=== PATIENT | male | born 2000 | race Caucasian/White ===

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

== ENCOUNTER 2022-06-27 09:18 | Emergency (ER) | payer MEDICAID, SELFPAY ==
--- NOTE | 2022-06-27 09:21 | ED.URI ---
HPI - URI/Sore Throat General Chief Complaint: Upper Respiratory Infection Stated Complaint: Chest Congestion/Shortness of Breath Time Seen by Provider: 06/27/22 09:20 Source: patient Mode of arrival: ambulatory Limitations: no limitations History of Present Illness HPI Narrative: Franck is a 22-year-old male patient presenting to the clinic today with complaints of chest congestion, sinus could congestion, sinus pain, and shortness of breath for over 1 week . He reports he is bringing up some yellowish brown phlegm when coughing and blowing his nose. He has felt feverish. MD elicited complaint: cough and other ( chest congestion, shortness of breath) Related Data Home Medications Medication Instructions Recorded Confirmed buspirone 15 mg tablet 15 mg PO BID 01/09/20 06/27/22 clonazepam 0.5 mg tablet 0.5 mg PO BID 01/09/20 06/27/22 lamotrigine 100 mg tablet 100 mg PO BID 01/09/20 06/27/22 clonazepam 1 mg tablet See Rx Instructions .Route 11/05/20 06/27/22 .COMPLEX PRN Anxiety fluvoxamine 100 mg tablet 100 mg PO DAILY 11/05/20 06/27/22 fluvoxamine 50 mg tablet 50 mg PO DAILY 11/05/20 06/27/22 quetiapine 25 mg tablet 25 mg PO HS 11/05/20 06/27/22 methylphenidate HCl 10 mg tablet 10 mg PO TID 06/27/22 06/27/22 Allergies Allergy/AdvReac Type Severity Reaction Status Date / Time No Known Allergies Allergy Verified 01/09/20 18:47 Review of Systems Review of Systems: Pertinent positives per HPI. Patient denies any fever, chills, rash, headache, visual changes, dizziness, chest pain, palpitations, nausea, vomiting, diarrhea, constipation, abdominal pain, or any urinary issues. [facility] Past Medical History Medical History Bipolar 1 disorder Schizo affective schizophrenia Social History Social History Gender identity (if verbalized by the patient): Male Comments At the time of my signature, I reviewed and agree with the nursing past medical, surgical, social, and family history. There is no relevant family history pertinent to the patient complaint. Exam Narrative: General: Well-developed, well nourished, in no apparent distress Head: Normocephalic, atraumatic Eyes: Pupils equally round and reactive to light bilaterally, EOM intact, sclera and conjunctive clear, no discharge, lids normal Ears: TMs intact and clear, ear canals clear, no drainage, grossly hearing normal. Nose: Nares patent, green nasal discharge, severe inflammation, maxillary and frontal sinus tenderness. Mouth: Oral pharynx without lesions or masses, good dentition, MMM. oropharynx red, postnasal drip Neck: Supple, trachea midline, no enlargement of anterior or posterior cervical nodes, no thyroid masses or goiter palpable. Cardio: Regular rate and rhythm, s1 and s2 normal, no murmur appreciated. Resp: Diminished in the lower lung goodman otherwise clear, no rhonchi, rales, wheezing or rubs Course Course Emergency Course: Portions of this record may have been created with voice recognition software. Level of Care: Express Care Visit Vital Signs Vital signs: Vital Signs Temperature 36.8 C 06/27/22 09:23 Pulse Rate 122 H 06/27/22 09:23 Respiratory Rate 18 06/27/22 09:23 Blood Pressure 149/96 H 06/27/22 09:23 Pulse Oximetry 100 06/27/22 09:23 Oxygen Delivery Room Air 06/27/22 09:23 Temperature 36.8 C 06/27/22 09:23 Pulse Rate 122 H 06/27/22 09:23 Respiratory Rate 18 06/27/22 09:23 Blood Pressure 149/96 H 06/27/22 09:23 Pulse Oximetry 100 06/27/22 09:23 Oxygen Delivery Room Air 06/27/22 09:23 Vital signs reviewed MDM - URI/Sore Throat MDM Narrative Medical decision making narrative: At the time of visit patient is resting comfortably on the exam table. I suspect patient has acute rhinosinusitis and bronchitis. Prescription for Augmentin, prednisone, and albuterol in
[2022-06-27 09:23] VITALS: BP 149/96; PULSE 122; RESP 18; TEMP 36.8; O2SAT 100
== END 2022-06-27 09:35 | disposition home or self-care (01) ==
PROVIDERS: Emergency Provider Nurse Practitioner Family
DX: J01.90 Acute sinusitis, unspecified (principal); J40 Bronchitis, not specified as acute or chronic; F31.9 Bipolar disorder, unspecified; F25.9 Schizoaffective disorder, unspecified
CPT/HCPCS: 99213; G0463

== ENCOUNTER 2022-09-16 08:45 | Emergency (ER) | payer MEDICARE, MEDICAID, SELFPAY ==
[2022-09-16 08:50] VITALS: BP 155/105; PULSE 86; RESP 20; TEMP 37.2; O2SAT 99
--- NOTE | 2022-09-16 08:52 | ED.URI ---
HPI - URI/Sore Throat General Chief Complaint: Upper Respiratory Infection Stated Complaint: ears and throat fatigue Time Seen by Provider: 09/16/22 09:20 Source: patient and RN notes reviewed Mode of arrival: ambulatory Limitations: no limitations History of Present Illness HPI Narrative: 22-year-old male presents with concern for nasal congestion, rhinorrhea, cough, ear pain, sore throat that started 3-4 days ago. Reports exposure to strep throat. Reports he has not taken any medications for his symptoms. MD elicited complaint: sore throat and nasal congestion Related Data Home Medications Medication Instructions Recorded Confirmed clonazepam 0.5 mg tablet 0.5 mg PO BID 01/09/20 09/16/22 methylphenidate HCl 10 mg tablet 10 mg PO TID 06/27/22 09/16/22 Allergies Allergy/AdvReac Type Severity Reaction Status Date / Time buspirone [From BuSpar] Allergy Rash Verified 09/16/22 09:18 Review of Systems Review of Systems: CONSTITUTIONAL: Denies malaise, chills, sweats, or fever. EYES: Denies visual changes, redness, or discharge. ENT: Reports rhinorrhea, congestion, otalgia and sore throat. CARDIOVASCULAR: Denies chest pain, palpitations, or edema. RESPIRATORY: Reports cough. Denies dyspnea. GASTROINTESTINAL: Denies abdominal pain, nausea, vomiting, diarrhea SKIN: Denies rash or itching. MUSCULOSKELETAL: Denies myalgia. NEUROLOGIC: Denies headache. All systems reviewed & are unremarkable except as noted in HPI and below PMFSH Past Medical History Medical History Bipolar 1 disorder Schizo affective schizophrenia Social History Social History Gender identity (if verbalized by the patient): Male Comments At time of signature, agree with nursing past medical, surgical, social and family history. There is no relevant family history pertinent to the presenting complaint Exam Narrative: GENERAL: Well-appearing, well-nourished, and in no acute distress. HEAD: Normocephalic EYES: PERRLA, conjunctivae clear ENT: Nares clear, clear discharge. Mucous membranes moist. TM pearly hirsch with dull light reflex bilaterally; no tragal tenderness. Oropharynx erythematous without lesions. Tonsils not enlarged and without exudate, no drooling, no hoarseness, no trismus, uvula midline. NECK: Supple. No lymphadenopathy CHEST: Clear to auscultation, breath sounds equal. No wheezing, rhonchi, rales, or stridor. No respiratory distress, speaks in full sentences. HEART: Regular rate and rhythm. No murmur heard. SKIN: Warm, dry, no rash. NEURO: Alert and oriented x3. PSYCH: Normal mood and affect Course Course Emergency Course: Patient is aware of diagnosis, understands and agrees to treatment plan. Anticipatory guidance given. Patient agrees to follow-up as directed and is aware of reasons to seek care at the emergency department. Portions of this record may have been created with voice recognition software Level of Care: Express Care Visit Vital Signs Vital signs: Reviewed. MDM - URI/Sore Throat MDM Narrative Medical decision making narrative: Differential diagnosis considered: Cormier virus, strep pharyngitis, allergic rhinitis, upper respiratory tract infection, sinusitis, rhinosinusitis, nasopharyngitis. viral pharyngitis, otitis media, otitis externa, pneumonia, bronchitis, viral cough syndrome, viral syndrome, and influenza. Exam findings show no acute concerns or changes; patient is non-toxic appearing and is in no distress. Patient is appropriate for outpatient treatment and follow-up. Lab Data Attestation: I reviewed the patient's lab results. Critical Care Time Critical Care Time Critical Care Time: No Discharge Plan Discharge Clinical Impression: Upper respiratory infection Patient Disposition: Home, Self-Care Condition: Stable Instructions: Upper Respiratory Infection (ED) Additi
== END 2022-09-16 09:58 | disposition home or self-care (01) ==
PROVIDERS: Emergency Provider Nurse Practitioner
DX: J06.9 Acute upper respiratory infection, unspecified (principal)
CPT/HCPCS: 87081; 87880; 99213; G0463

== ENCOUNTER 2023-03-01 12:12 | Emergency (ER) | payer MEDICARE, MEDICAID, SELFPAY ==
[2023-03-01 12:20] VITALS: BP 136/81; PULSE 87; RESP 20; TEMP 36.8; O2SAT 100
--- NOTE | 2023-03-01 12:29 | ED.UPPEXIN ---
HPI - Extremity Injury (Upper) General Chief Complaint: Upper Respiratory Infection Stated Complaint: Sore Throat/Vomiting/Chills History of Present Illness HPI narrative: PATIENT PRESENTS WITH SORE THROAT NO TROUBLE SWALLOWING NO DROOLING SOME NAUSEA NO VOMITING NO RASH TOLERATING PO FLUIDS WELL NORMAL OUTPUT Related Data Home Medications Medication Instructions Recorded Confirmed clonazepam 0.5 mg tablet 0.5 mg PO BID 01/09/20 03/01/23 methylphenidate HCl 10 mg tablet 10 mg PO TID 06/27/22 03/01/23 Allergies Allergy/AdvReac Type Severity Reaction Status Date / Time buspirone [From BuSpar] Allergy Rash Verified 09/16/22 09:18 Review of Systems Review of Systems: CONSTITUTIONAL: DENIES CHILLS, OR SWEATS. REPORTS FEVER AND GENERALIZED BODY ACHES EYES: DENIES VISUAL CHANGES, REDNESS, OR DISCHARGE. ENT: DENIES OTALGIA. REPORTS NASAL CONGESTION RUNNY NOSE AND SORE THROAT CARDIOVASCULAR: DENIES CHEST PAIN, PALPITATIONS, OR EDEMA. RESPIRATORY: DENIES DYSPNEA. REPORTS OCCASIONAL COUGH GASTROINTESTINAL: DENIES ABDOMINAL PAIN, NAUSEA, VOMITING, OR DIARRHEA. GENITOURINARY: DENIES DYSURIA OR HEMATURIA. SKIN: DENIES RASH OR ITCHING. MUSCULOSKELETAL: DENIES BACK PAIN, JOINT PAIN, OR MYALGIA. REPORTS GENERALIZED BODY ACHES NEUROLOGIC: DENIES HEADACHE, NUMBNESS, OR WEAKNESS. PSYCHIATRIC: DENIES ANXIETY OR DEPRESSION. [facility] Past Medical History Medical History Bipolar 1 disorder Schizo affective schizophrenia Social History Social History Gender identity (if verbalized by the patient): Male Comments AT TIME OF SIGNATURE, AGREE WITH NURSING PAST MEDICAL, SURGICAL, SOCIAL AND FAMILY HISTORY. THERE IS NO RELEVANT FAMILY HISTORY PERTINENT TO THE PRESENTING COMPLAINT Exam Narrative: THE PATIENT IS A WELL-DEVELOPED, WELL-NOURISHED IN NO ACUTE DISTRESS. SKIN: SKIN IS WARM AND DRY WITHOUT ERYTHEMA, SWELLING OR EXUDATE. THERE IS GOOD TURGOR. NO TENTING. HEAD: ATRAUMATIC. NORMOCEPHALIC. NO TEMPORAL OR SCALP TENDERNESS. EYES: MOIST AND BRIGHT. SCLERA AND CONJUNCTIVAE NORMAL. NO DISCHARGE. PERRLA. EXTRAOCULAR MOTIONS INTACT. GROSS VISUAL ACUITY INTACT. EARS: PINNA IS NORMAL SHAPE AND CONTOUR. CLEAR EXTERNAL AUDITORY CANALS. TM PEARLY CASILLAS WITH GOOD CONE OF LIGHT, NO ERYTHEMA OR SUPPURATION. BILATERAL CERUMEN NOTED NO GROSS HEARING DEFICIT. NOSE: PINK, MOIST MUCOSA WITH GOOD AIR MOVEMENT. CLEAR RHINORRHEA WITHOUT NASAL FLARING. SEPTUM MIDLINE. MOUTH: MOIST MUCOUS MEMBRANES. THROAT; MILD ERYTHEMA NOTED TO POSTERIOR OROPHARYNX WITH MODERATE POSTNASAL DRAINAGE. WITHOUT EXUDATE OR ULCERATION.. UVULA MIDLINE. NORMAL MOVEMENT OF SOFT PALATE. NECK: SUPPLE AND NONTENDER WITH FULL RANGE OF MOTION WITHOUT DISCOMFORT. NO MENINGEAL SIGNS. LUNGS: EQUAL AND BILATERAL BREATH SOUNDS WITHOUT WHEEZES, RALES OR RHONCHI. CHEST: THE CHEST WALL IS WITHOUT RETRACTIONS OR USE OF ACCESSORY MUSCLES. HEART: HAS A REGULAR RATE AND RHYTHM WITHOUT MURMUR, GALLOPS, CLICK OR RUB. ABDOMEN: SOFT, NONTENDER WITH POSITIVE ACTIVE BOWEL SOUNDS. NO REBOUND TENDERNESS. EXTREMITIES: WITHOUT CYANOSIS, CLUBBING OR EDEMA. EQUAL 2+ DISTAL PULSES AND 2 SECOND CAPILLARY REFILL NOTED. NEUROLOGIC: ALERT, ACTIVE, . THE PATIENT MOVES ALL EXTREMITIES WITH NORMAL MUSCLE STRENGTH. NORMAL MUSCLE TONE IS NOTED. NORMAL COORDINATION IS NOTED. NO FOCAL NEUROLOGICAL FINDINGS NOTED. Course Course Level of Care: Express Care Visit Vital Signs Vital signs: Vital Signs Temperature 36.8 C 03/01/23 12:20 Pulse Rate 87 03/01/23 12:20 Respiratory Rate 03/01/23 12:20 Blood Pressure 136/81 03/01/23 12:20 Pulse Oximetry 100 03/01/23 12:20 Oxygen Delivery Room Air 03/01/23 12:20 Temperature 36.8 C 03/01/23 12:20 Pulse Rate 87 03/01/23 12:20 Respiratory Rate 03/01/23 12:20 Blood Pressure 136/81 03/01/23 12:20 Pulse Oximetr
== END 2023-03-01 12:55 | disposition home or self-care (01) ==
PROVIDERS: Emergency Provider Nurse Practitioner Family
DX: J02.9 Acute pharyngitis, unspecified (principal); F20.9 Schizophrenia, unspecified
CPT/HCPCS: 87880; 99213; G0463

== ENCOUNTER 2023-05-22 09:58 | Emergency (ER) | payer MEDICARE, MEDICAID, SELFPAY ==
[2023-05-22 10:05] VITALS: BP 147/85; PULSE 70; RESP 18; TEMP 36.7; O2SAT 100
[2023-05-22 10:14] VITALS: BP 147/85; PULSE 70; RESP 18; TEMP 36.7; O2SAT 100
--- NOTE | 2023-05-22 11:07 | ED.URI ---
HPI - URI/Sore Throat General Chief Complaint: Upper Respiratory Infection Stated Complaint: aches/chills/chest heavy/cough Time Seen by Provider: 05/22/23 11:08 Source: patient, RN notes reviewed and old records reviewed Mode of arrival: ambulatory Limitations: no limitations History of Present Illness HPI Narrative: 23 year old male presents to [facility] care with complaints of 2 day history of dry cough and some chest heaviness with cough, states little shortness of breath, some nasal congestion and drainage, body aches and chllls, unknown if any fevers. Patient denies any known wheezing. Patient reports that he needs work note since he had to call off today. Patient reports that he has history of past pneumonia and bronchitis. MD elicited complaint: cough and sore throat Pertinent past history: pneumonia and other (bronchitis) Onset (ago): day(s) (2 days) Pain scale (0-10): 5 Able to tolerate fluids by mouth: Yes Treatments prior to arrival: ibuprofen Related Data Home Medications Medication Instructions Recorded Confirmed clonazepam 0.5 mg tablet 0.5 mg PO BID 01/09/20 05/22/23 clonidine HCl 0.1 mg 0.1 mg PO DAILY 05/22/23 05/22/23 tablet,extended release,12 hr Allergies Allergy/AdvReac Type Severity Reaction Status Date / Time buspirone [From BuSpar] Allergy Rash Verified 05/22/23 10:01 Review of Systems Review of Systems: CONSTITUTIONAL: Reports malaise, chills, sweats, unknown if fever. EYES: Denies visual changes, redness, or discharge. ENT: Reports rhinorrhea, congestion, sinus pain, no otalgia and no sore throat. CARDIOVASCULAR: Denies chest pain, palpitations, or edema. RESPIRATORY: Reports cough.? states he is a little short of breath and has chest heaviness with cough GASTROINTESTINAL: Denies abdominal pain, nausea, vomiting, diarrhea SKIN: Denies rash or itching. MUSCULOSKELETAL:Reports myalgia. NEUROLOGIC: Denies headache. All systems reviewed & are unremarkable except as noted in HPI and below PMFSH Past Medical History Medical History (Updated 05/23/23 @ 09:32 by Lidia Lovett NP) Anxiety and depression Bipolar 1 disorder Bronchitis OCD (obsessive compulsive disorder) Pneumonia Schizo affective schizophrenia Surgical History Surgical History H/O eye surgery History of repair of pyloric stenosis Social History Social History Smoking status: Never smoker Alcohol intake: unknown Substance use: current Substance use type: marijuana Gender identity (if verbalized by the patient): Male Comments At time of signature, agree with nursing past medical, surgical, social and family history. There is no relevant family history pertinent to the presenting complaint Exam Narrative: GENERAL: Well-appearing, well-nourished, and in no acute distress. HEAD: Normocephalic EYES: PERRLA, conjunctivae clear ENT: Nares clear, turbinates edematous and erythematous, clear discharge. Mucous membranes moist. TM pearly hirsch with dull light reflex bilaterally; no tragal tenderness. Oropharynx erythematous without lesions. Tonsils not enlarged and without exudate, no drooling, no hoarseness, no trismus, uvula midline.post nasal drainage NECK: Supple. No lymphadenopathy CHEST: Clear to auscultation, breath sounds equal. No wheezing, rhonchi, rales, or stridor. No respiratory distress, speaks in full sentences.dry cough,SAO2 100% on room air, no tachypnea noted respirations even and nonlabored HEART: Regular rate and rhythm. No murmur heard. SKIN: Warm, dry, no rash. NEURO: Alert and oriented x3. PSYCH: Normal mood and affect Course Course Emergency Course: Patient is aware of diagnosis, understands and agrees to treatment plan.? Anticipatory guidance given.? Patient agrees to follow-up as directed and is aware of reasons to seek care at the emerg
== END 2023-05-22 11:55 | disposition home or self-care (01) ==
PROVIDERS: Emergency Provider Registered Nurse
DX: J06.9 Acute upper respiratory infection, unspecified (principal); Z20.822 Contact with and (suspected) exposure to COVID-19; F12.90 Cannabis use, unspecified, uncomplicated; F41.9 Anxiety disorder, unspecified
CPT/HCPCS: 87081; 87426; 87804; 87880; 99213; C9803; G0463

== ENCOUNTER 2023-06-25 11:48 | Emergency (ER) | payer MEDICARE, MEDICAID, SELFPAY ==
[2023-06-25 11:56] VITALS: BP 143/84; PULSE 81; RESP 16; TEMP 37.3; O2SAT 100
--- NOTE | 2023-06-25 11:58 | ED.NAVMDI ---
HPI - Nausea/Vomiting/Diarrhea General Chief complaint: Nausea/Vomiting/Diarrhea Stated complaint: nausea/diarrhea/chills Time Seen by Provider: 06/25/23 11:58 Source: patient Mode of arrival: ambulatory Limitations: no limitations History of Present Illness HPI Narrative: Patient is a 23-year-old male who presents with 3 days of nausea, vomiting and diarrhea. Reports abdominal cramping. Has not been able is keep anything down. Related Data Home Medications Medication Instructions Recorded Confirmed clonidine HCl 0.1 mg 0.1 mg PO DAILY 05/22/23 05/22/23 tablet,extended release,12 hr albuterol sulfate 90 mcg/actuation inhalation 06/25/23 aerosol inhaler dextroamphetamine-amphetamine ER PO 06/25/23 10 mg 24hr capsule,extend release Allergies Allergy/AdvReac Type Severity Reaction Status Date / Time buspirone [From BuSpar] Allergy Rash Verified 06/25/23 11:54 Review of Systems Review of Systems: All systems reviewed & are unremarkable except as noted in HPI and below Constitutional: Constitutional: Denies body ache(s), Denies chills, Denies fatigue, Denies fever(s), Denies headache(s), Denies malaise and Denies weakness Eyes: Eyes: Denies blurry vision, Denies irritation and Denies loss of vision ENT: Denies otalgia, Denies headache(s), Denies nasal discharge, Denies sinus pain and Denies sore throat Cardiovascular: Cardiovascular: Denies chest pain, Denies irregular heart rhythm and Denies dyspnea Respiratory: Respiratory: Denies dyspnea Gastrointestinal: Gastrointestinal: Reports abdominal pain, Denies melena, Denies hematochezia, Reports diarrhea, Reports nausea and Reports vomiting Musculoskeletal: Musculoskeletal: Denies back pain, Denies myalgias and Denies arthralgias Integumentary/Breasts: Skin/Breast: Denies pruritus and Denies rash Neurologic: Denies headache(s), Denies loss of vision and Denies weakness Psychiatric: Psychiatric: Reports no additional psychiatric complaints Endocrine: Endocrine: Denies fatigue PMFSH Past Medical History Medical History Anxiety and depression Bipolar 1 disorder Bronchitis OCD (obsessive compulsive disorder) Pneumonia Schizo affective schizophrenia Surgical History Surgical History H/O eye surgery History of repair of pyloric stenosis Social History Social History Smoking status: Never smoker Alcohol intake: unknown Substance use: current Substance use type: marijuana Gender identity (if verbalized by the patient): Male Comments At time of signature, agree with nursing past medical, surgical, social and family history. There is no relevant family history pertinent to the presenting complaint. Exam Const: General: cooperative, healthy appearing, comfortable, no acute distress and well nourished Nutritional Appearance: well nourished Orientation/consciousness: patient oriented x3 Limitations: no limitations HENMT: Head: normal to inspection, normocephalic and atraumatic Ears: hearing grossly normal bilaterally and external ears normal Face/Nose/Sinus: Normal external nose present, normal facial exam and face symmetric Face and sinus: normal facial exam and face symmetric Mouth: Yes lip normal Eyes: General: appearance normal, both eyes and all related structures Alignment and Position: alignment normal and position normal Periorbital: periorbital findings normal Eyelids: eyelids normal Pupils: Equal, round and reactive pupils present EOM: EOMs intact bilaterally Neck: Neck: normal visual inspection, full ROM and supple Chest: Chest palpation & inspection: normal inspection of the chest Resp: Effort & Inspection: normal respiratory effort and able to speak in complete sentences Auscultation: clear to auscultation bilaterally Cardio: Rate: regular rate Rh
[2023-06-25 12:07] VITALS: BP 143/84; PULSE 81; RESP 16; TEMP 37.3; O2SAT 100
== END 2023-06-25 12:22 | disposition home or self-care (01) ==
PROVIDERS: Emergency Provider Nurse Practitioner Family
DX: K52.9 Noninfective gastroenteritis and colitis, unspecified (principal); Z79.899 Other long term (current) drug therapy
CPT/HCPCS: 99213; G0463

== ENCOUNTER 2023-08-04 09:07 | Emergency (ER) | payer MEDICARE, MEDICAID, SELFPAY ==
[2023-08-04 09:14] VITALS: BP 124/74; PULSE 84; RESP 20; TEMP 37.4; O2SAT 100
--- NOTE | 2023-08-04 09:48 | ED.URI ---
HPI - URI/Sore Throat General Chief Complaint: Upper Respiratory Infection Stated Complaint: aches/fever/ears/headache Time Seen by Provider: 08/04/23 09:35 Source: patient, RN notes reviewed and old records reviewed Mode of arrival: ambulatory Limitations: no limitations History of Present Illness HPI Narrative: 23-year-old male who presents to [facility] Care with complaints 2 day history of body aches, fevers, chills, headache, and ear pain, with episodes of diarrhea. Patient states the last time he had diarrhea was at 6:00 a.m. Patient has taken Tylenol and ibuprofen for his symptoms.Patient reports no shortness of breath, no tachypnea or any retractions. MD elicited complaint: cough and other (body aches,chills, fever headache and ear pain) Onset (ago): day(s) (2) Pain scale (0-10): 7 Able to tolerate fluids by mouth: Yes Treatments prior to arrival: acetaminophen and ibuprofen Related Data Home Medications Medication Instructions Recorded Confirmed clonidine HCl 0.1 mg 0.1 mg PO DAILY 05/22/23 08/04/23 tablet,extended release,12 hr albuterol sulfate 90 mcg/actuation 2 puff inhalation Q4-6H PRN 06/25/23 08/04/23 aerosol inhaler Shortness Of Breath Or Wheezing dextroamphetamine-amphetamine ER 10 mg PO DAILY 06/25/23 08/04/23 10 mg 24hr capsule,extend release Allergies Allergy/AdvReac Type Severity Reaction Status Date / Time buspirone [From BuSpar] Allergy Rash Verified 08/04/23 09:39 Review of Systems Review of Systems: CONSTITUTIONAL: Reports malaise, chills, sweats, or fever. EYES: Denies visual changes, redness, or discharge. ENT: Reports rhinorrhea, congestion,no sinus pain, bilateral otalgia and no sore throat. CARDIOVASCULAR: Denies chest pain, palpitations, or edema. RESPIRATORY: Reports cough.? Denies dyspnea. GASTROINTESTINAL: Denies abdominal pain, nausea, vomiting, positive for diarrhea SKIN: Denies rash or itching. MUSCULOSKELETAL: Reports myalgia. NEUROLOGIC: Reports headache. All systems reviewed & are unremarkable except as noted in HPI and below PMFSH Past Medical History Medical History Anxiety and depression Bipolar 1 disorder Bronchitis OCD (obsessive compulsive disorder) Pneumonia Schizo affective schizophrenia Surgical History Surgical History H/O eye surgery History of repair of pyloric stenosis Social History Social History Smoking status: Never smoker Alcohol intake: unknown Substance use: current Substance use type: marijuana Gender identity (if verbalized by the patient): Male Comments At time of signature, agree with nursing past medical, surgical, social and family history. There is no relevant family history pertinent to the presenting complaint Exam Narrative: GENERAL: Well-appearing, well-nourished, and in no acute distress. HEAD: Normocephalic EYES: PERRLA, conjunctivae clear ENT: Nares clear, turbinates edematous and erythematous, clear discharge. Mucous membranes moist. Right TM red, Left TM pearly hirsch with dull light reflex; no tragal tenderness. Oropharynx erythematous without lesions. Tonsils not enlarged and without exudate, no drooling, no hoarseness, no trismus, uvula midline.post nasal discharge NECK: Supple. No lymphadenopathy CHEST: Clear to auscultation, breath sounds equal. No wheezing, rhonchi, rales, or stridor. No respiratory distress, speaks in full sentences.SAO2 100% on room air HEART: Regular rate and rhythm. No murmur heard. SKIN: Warm, dry, no rash. NEURO: Alert and oriented x3. PSYCH: Normal mood and affect Course Course Emergency Course: Patient is aware of diagnosis, understands and agrees to treatment plan.? Anticipatory guidance given.? Patient agrees to follow-up as directed and is aware of reasons to seek care at
== END 2023-08-04 10:10 | disposition home or self-care (01) ==
PROVIDERS: Emergency Provider Registered Nurse
DX: B34.9 Viral infection, unspecified (principal); H65.01 Acute serous otitis media, right ear; Z79.899 Other long term (current) drug therapy; Z20.822 Contact with and (suspected) exposure to COVID-19
CPT/HCPCS: 87426; 87804; 99213; G0463

== ENCOUNTER 2024-03-23 15:27 | Emergency (ER) | payer MEDICARE, MEDICAID, SELFPAY ==
[2024-03-23 15:35] VITALS: BP 123/68; PULSE 85; RESP 18; TEMP 37.2; O2SAT 100
--- NOTE | 2024-03-23 15:44 | ED.URI ---
HPI - URI/Sore Throat General Chief Complaint: Upper Respiratory Infection Stated Complaint: chills/fatigue/cough/ears Source: patient and RN notes reviewed Mode of arrival: ambulatory Limitations: no limitations History of Present Illness HPI Narrative: 23-year-old male presented for complaint of nausea vomiting and diarrhea. Onset 3 days. Reports temp up to 101 yesterday. Endorses symptoms are improving but continues to endorse fatigue, body aches, and decreased p.o. intake. States he had 1 episode of vomiting since onset, and stools are now more formed. Denies abdominal pain, nausea, hematochezia, melena, cough or shortness of breath. Taking Pepto-Bismol. Reports exposure to COVID. MD elicited complaint: cough Related Data Home Medications Medication Instructions Recorded Confirmed clonidine HCl 0.1 mg 0.1 mg PO DAILY 05/22/23 03/23/24 tablet,extended release,12 hr dextroamphetamine-amphetamine 5 mg 5 mg PO QHS 03/23/24 03/23/24 tablet dextroamphetamine-amphetamine ER 15 mg PO QAM 03/23/24 03/23/24 15 mg 24hr capsule,extend release Allergies Allergy/AdvReac Type Severity Reaction Status Date / Time buspirone [From BuSpar] Allergy Rash Verified 08/04/23 09:39 Review of Systems Review of Systems: CONSTITUTIONAL: Endorses malaise, chills, sweats, fever EYES: Denies visual changes, redness, or discharge ENT: Reports rhinorrhea, congestion, sinus pain, otalgia, sore throat CARDIOVASCULAR: Denies chest pain, palpitations, edema RESPIRATORY: Reports cough, post nasal drainage. Denies dyspnea GASTROINTESTINAL: Denies abdominal pain, nausea, vomiting, Reports diarrhea SKIN: Denies rash or itching MUSCULOSKELETAL: Endorses myalgia NEUROLOGIC: Denies headache PMFSH Past Medical History Medical History Anxiety and depression Bipolar 1 disorder Bronchitis OCD (obsessive compulsive disorder) Pneumonia Schizo affective schizophrenia Surgical History Surgical History H/O eye surgery History of repair of pyloric stenosis Social History Social History Smoking status: Never smoker Alcohol intake: unknown Substance use: current Substance use type: marijuana Gender identity (if verbalized by the patient): Male Exam Narrative: GENERAL: well-appearing, nontoxic EYES: PERRLA, conjunctivae clear ENT: Mucous membranes moist. TM pearly hirsch with dull light reflex bilaterally; no tragal tenderness. Oropharynx not erythematous without lesions or exudate, no drooling, no hoarseness, no trismus, uvula midline. No tripod positioning, muffled voice, soft palate or pharyngeal wall bulging NECK: Supple. No lymphadenopathy CHEST: Clear to auscultation, breath sounds equal. No wheezing, rhonchi, rales, or stridor. No respiratory distress, speaks in full sentences. HEART: Regular rate and rhythm. No murmur heard. ABD: soft, flat, mildly tender bilateral lower quadrants SKIN: Warm, dry, no rash. NEURO: Alert and oriented x3. PSYCH: Normal mood and affect Course Course Emergency Course: Patient is aware of diagnosis, understands and agrees to treatment plan. Anticipatory guidance given. Patient agrees to follow-up as directed and is aware of reasons to seek care at the emergency department. Portions of this record may have been created with voice recognition software Level of Care: Express Care Visit Vital Signs Vital signs: Vital Signs Temperature 99 F 03/23/24 15:35 Pulse Rate 85 03/23/24 15:35 Respiratory Rate 18 03/23/24 15:35 Blood Pressure 123/68 03/23/24 15:35 Pulse Oximetry 100 03/23/24 15:35 Oxygen Delivery Room Air 03/23/24 15:35 Temperature 99 F 03/23/24 15:35 Pulse Rate 85 03/23/24 15:35 Respiratory Rate 18 03/23/24 15:35 Blood Pressure 123/68 03/23/24 15:35 Pulse Oxi
[2024-03-23 15:55] LABS: EDCOVIDSCREEN Negative (Negative); EDINFLUASCREEN Negative (Negative); EDINFLUBSCREEN Negative (Negative)
== END 2024-03-23 16:00 | disposition home or self-care (01) ==
PROVIDERS: Emergency Provider Nurse Practitioner Family
DX: B34.9 Viral infection, unspecified (principal); Z20.822 Contact with and (suspected) exposure to COVID-19
CPT/HCPCS: 87426; 87804; 99213; G0463

== ENCOUNTER 2024-07-13 17:51 | Emergency (ER) | payer MEDICARE, MEDICAID, SELFPAY ==
[2024-07-13 17:59] VITALS: BP 119/56; PULSE 92; RESP 16; TEMP 37.3; O2SAT 100
[2024-07-13 18:14] LABS: EDSTREPNEGPOS1 Negative (Negative)
--- NOTE | 2024-07-13 18:19 | ED.URI ---
HPI - URI/Sore Throat General Chief Complaint: Upper Respiratory Infection Stated Complaint: Sore Throat/Body Aches/Headahce Time Seen by Provider: 07/13/24 18:10 Source: patient Mode of arrival: ambulatory Limitations: no limitations History of Present Illness HPI Narrative: 24 yo M presents with c/o sore throat, nasal congestion, mild cough, fatigue and bodyaches for 5 days. Sore throat pretty severe wanted to get checked for strep. Afebrile. States probably just got a virus . No CP or SOB. All systems reviewed and negative except as noted above. Related Data Home Medications ?Medication ?Instructions ?Recorded ?Confirmed ?Last Taken ?Type clonidine HCl 0.1 mg 0.1 mg PO DAILY 05/22/23 03/23/24 Unknown History tablet,extended release,12 hr dextroamphetamine-amphetamine 5 mg 5 mg PO QHS 03/23/24 03/23/24 Unknown History tablet dextroamphetamine-amphetamine ER 15 mg PO QAM 03/23/24 03/23/24 Unknown History 15 mg 24hr capsule,extend release Allergies Allergy/AdvReac Type Severity Reaction Status Date / Time buspirone (From BuSpar) Allergy Rash Verified 07/13/24 18:06 Review of Systems Review of Systems: CONSTITUTIONAL: Denies fever, chills, or sweats. reports fatigue. EYES: Denies visual changes, redness, or discharge. ENT: Reports rhinorrhea, congestion, sore throat. Denies otalgia. CARDIOVASCULAR: Denies chest pain, palpitations, or edema. RESPIRATORY: reports cough. Denies dyspnea. GASTROINTESTINAL: Denies abdominal pain, nausea, vomiting, or diarrhea. GENITOURINARY: Denies dysuria or hematuria. SKIN: Denies rash or itching. MUSCULOSKELETAL: Denies back pain, joint pain, or myalgia. NEUROLOGIC: Denies headache, numbness, or weakness. PSYCHIATRIC: Denies anxiety or depression. All other systems reviewed are negative, except as documented in HPI. [facility] Past Medical History Medical History Anxiety and depression Bipolar 1 disorder Bronchitis OCD (obsessive compulsive disorder) Pneumonia Schizo affective schizophrenia Surgical History Surgical History H/O eye surgery History of repair of pyloric stenosis Social History Social History Smoking status: Never smoker Alcohol intake: unknown Substance use: current Substance use type: marijuana Gender identity (if verbalized by the patient): Male Comments At time of signature, agree with nursing past medical, surgical, social and family history. There is no relevant family history pertinent to the presenting complaint. Exam Narrative: GENERAL: This is a well-nourished, well-developed patient, in no apparent distress. HEAD: normocephalic, atraumatic. EYES: PERRL. Sclera clear/white. Vision is grossly intact. EARS: External ears normal, auditory canals clear and without drainage, TMs normal without perforation. Hearing grossly intact. NOSE: External nose normal with Mild congestion, clear nasal drainage THROAT: Mucous membranes moist, mild erythema with postnasal drainage. No swelling or exudates. NECK: Neck supple, non-tender without lymphadenopathy, masses or thyromegaly. CARDIOVASCULAR: Regular rate and rhythm without murmurs, gallops, or rubs. RESPIRATORY: Clear to auscultation. Breath sounds equal bilaterally. No wheezes, rales, or rhonchi. SKIN: warm, Dry, intact with no suspicious lesions or rash, good texture and turgor. NEURO: awake, alert, and oriented to person, place and time. There were no obvious focal neurologic abnormalities. EXTREMITIES: No joint tenderness, effusion, or edema noted. Course Course Level of Care: Express Care Visit Vital Signs Vital signs: Vital Signs Temperature 37.3 C 07/13/24 17:59 Pulse Rate 92 07/13/24 17:59 Respiratory Rate 16 07/13/24 17:59 Blood Pressure 119/56 L 07/13/24 17:59 Pulse Oximetry 100 07/13/24 17:59 Oxygen Delivery Room Air 07/13/24 17:59 Temperature 37.3 C 07/13/24 17:59 Pulse Rate 92 07/13/24 17:59 Respiratory Rate 16 07/13/24 17:59 Blood Pressure 119/56 L 07/13/24 17:59 Pulse Oximetry 100 07/13/24 17:59 Oxygen Delivery Room Air 07/13/24 17:59 Reviewed MDM - URI/Sore Throat MDM Narrative Medical decision making narrative: negative strep, influenza and COVID test. Strep culture ordered. Recommend patient take [id number] medications to treat viral symptoms. Patient is aware of diagnosis, understands and agrees to treatment plan. Anticipatory guidance given. Patient agrees to follow-up as directed and is aware of reasons to seek care at the emergency department. Portions of this record may have been created with voice recognition software Differential Diagnosis Differential diagnosis: Likely upper respiratory infection, sinusitis, viral infection, influenza and pharyngitis Lab Data Labs: Lab Results 07/13/24 Range/Units 18:13 POC Grp A Strep Screen Negative (Negative) Discharge Plan Discharge Clinical Impression: Viral upper respiratory tract infection with cough Patient Disposition: Home, Self-Care Condition: Stable Instructions: Upper Respiratory Infection (ED) Additional Instructions: your COVID, influenza and strep test were negative today. A strep culture was ordered and results will take 24-48 hours. If your strep culture is positive we will call you at that time and prescribed an antibiotic. Your symptoms are viral and may last 10-14 days. Taking [id number] medication to treat her symptoms such as DayQuil NyQuil cold and flu. Drink at least 64 oz of water a day. Follow-up With your primary care physician if symptoms are not improving. Patient Language: Georgian Prescriptions: No Action clonidine HCl 0.1 mg tablet extended release 12 hr 0.1 mg PO DAILY dextroamphetamine-amphetamine 5 mg tablet 5 mg PO QHS dextroamphetamine-amphetamine 15 mg capsule,extended release 24hr 15 mg PO QAM Follow-up/Referrals: PHYSICIAN NOT ON STAFF,NONSTAFF [Primary Care Provider] - Time of Disposition: 18:23
[2024-07-13 18:30] LABS: EDCOVIDSCREEN Negative (Negative); EDINFLUASCREEN Negative (Negative); EDINFLUBSCREEN Negative (Negative)
== END 2024-07-13 18:31 | disposition home or self-care (01) ==
PROVIDERS: Emergency Provider Nurse Practitioner Family
DX: J06.9 Acute upper respiratory infection, unspecified (principal); R05.9 Cough, unspecified; Z20.822 Contact with and (suspected) exposure to COVID-19; F12.90 Cannabis use, unspecified, uncomplicated
CPT/HCPCS: 87081; 87426; 87804; 87880; 99213; G0463

== ENCOUNTER 2025-03-31 18:32 | Emergency (ER) | payer OTHER, MEDICARE, MEDICAID, SELFPAY ==
--- NOTE | ~2025-03-31 | XR_ITS ---
Examination: XR forearm LT 2V Clinical History: wire stabbed him in the right proximal ULNAR ASPECT Comparison: None Technique: 2 views left forearm Findings/impression: 1. No radiopaque foreign body. 2. No fracture or other acute abnormality. Reviewed, dictated and finalized at location R.
--- OUTSIDE RECORDS SUMMARY | 2025-03-31 18:35 | XMS_ITS | Encounter Summary ---
Author Organization [facility] Address [address] [place] [address] Care Team Providers Care Lab Rn Name Role Phone Unavailable Primary Care Provider Unavailabl e Encounter Details Date Type Department Care Team (Late st Contact Info) Description 05/15/2022 Telephone [facility] [place] [address] Tim Forte I, OD [address] [facility] [place] [address] Social History Tobacco Use Types Packs/Day Years Used Date Smoking Tobacco: Some Days Smokeless Tobacco: Never Alcohol Use Standard Drinks/Week Comments Never 0 (1 standard drink = 0.6 oz pur e alcohol) AUDIT-C Answer Date Recorded Frequency of Alcohol Consumption Never 06/30/2019 Average Number of Drinks Not on file 020 Frequency of Binge Drinking Not on file 07/2019 Sex and Gender Information Value Date Recorded Sex Assigned at Not on file 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 Patient would like to know if it can be emailed to his email on file. 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
--- OUTSIDE RECORDS SUMMARY | 2025-03-31 18:35 | XMS_ITS | Clinical Summary ---
Author Organization [facility] Address [address] [facility] [address] [place] [address] Phone Care Team Providers Care Private Tutors [employer] Teachers Name Role Phone Narendra Desouza MD Primary Care Provider Allergies Active Allergy Reactions Criticality Noted Date Comments Buspirone Rash 11/10/2020 Medications clonazePAM (KlonoPIN) 1 MG Tablet Take 1 Tablet by mouth 3 times daily as needed for Anxiety. 30 Tablet 1 Active clonazePAM (KlonoPIN) 1 MG Tablet Take 1 Tablet by mouth 3 times daily as needed for Anxiety. 20 Tablet 1 Active QUEtiapine (SEROquel) 100 MG TabletIndicatio ns:100mg in am, 200mg in pm Take by mouth 2 times daily. Indications: 100mg in am, 200mg in pm Active prazosin (MINIPRESS) 1 MG Capsule Take 1 mg by mouth 2 times daily. Active albuterol 108 (90 Base) MCG/ACT Aerosol Solution take 2 Puffs by inhalation every 6 hours as needed for Wheezing. 8 g 2 Active Encounters Date Type Department Care Team Description 03/05/2025 7:31 PM CDT - 03/06/2025 3:45 AM CDT Emergency [facility] Emergency [address] [place] [address] Song Arboleda MD Abdominal wall hematoma, initial encounter Discharge Disposition: Discharged to home or Selfcare 03/05/2025 Travel 01/09/2025 11:00 AM CDT - 01/09/2025 12:17 PM CDT Emergency [facility] Emergency [address] [facility] [place] [address] Mehran Ascencio, PAC Non-cardiac chest pain Discharge Disposition: Discharged to home or Selfcare 01/09/2025 Travel from Last 3 Months Social History Tobacco Use Types Packs/Day Years Used Date Smoking Tobacco: Never Smokeless Tobacco: Never Alcohol Use Standard Drinks/Week Comments Never 0 (1 standard drink = 0.6 oz pur e alcohol) AUDIT-C Answer Date Recorded Frequency of Alcohol Consumption Never 08/04/2019 Average Number of Drinks Not on file 020 Frequency of Binge Drinking Not on file 11/2019 Sex and Gender Information Value Date Recorded Sex Assigned at Not on file Legal Sex Male 10:30 PM CDT Gender Identity Not on file Sexual Orientation Not on file Last Filed Vital Signs Vital Sign Reading Time Taken Comments Blood Pressure 93/56 03/06/2025 3:43 AM CDT Pulse 77 03/06/2025 3:43 AM CDT Temperature 37.1 C (98.7 F) 03/05/2025 7:36 PM CDT Respiratory Rate 18 03/06/2025 3:43 AM CDT Oxygen Saturation 100% 03/06/2025 3:43 AM CDT Inhaled Oxygen Concentration - - Weight 75.6 kg (166 lb 10.7 oz) 03/05/2025 7:36 PM CDT Height 170.2 cm (5' 7) 03/05/2025 7:36 PM CDT Body Mass Index 26.1 03/05/2025 7:36 PM CDT Plan of Treatment Health Maintenance Due Date Last Done Comments Hepatitis C Virus (HCV) Screening 2001 Human Papillomavirus (HPV) Immunization (2 - Male 2-dose series) 01/17/2016 07/19/2015 Meningococcal B Immunization (1 of 2 - Standard) 2017 Medicare Initial AWV [id number] 06/29/2023 Influenza Immunization (#1) 02/27/202505/29, 09/02/2011, 06/07/2010, Additional history exists SARS-COV-2 Immunization (25 season) 2025 Respiratory Syncytial Virus (RSV) Immunization (Adult) (1 - 1-dose 75+ series) 2076 Pneumococcal Immunization Combined Aged Out 2001, 2001 No longer eligibl e based on patient's age to complete this topic Hepatitis B Immunization Completed 002, 2001, 2001 DTaP/Tdap/Td Immunization Discontinued 2011, 03/10/2006, 10/13/2002, Additional history exists TdaP Immunization Completed 09/02/2011 Meningococcal Immunization (ACWY) Aged Out 06/10/2012 No longer eligible based on patient's age to complete this topic Rotavirus Immunization Aged Out No lo nger eligible based on patient's age to complete this topic Procedures Procedure Name Priority Date/Time Associated Diagnosis Comments CT ABDOMEN PELVIS W/ CONTRAST Stat with Interpretation 03/05/2025 11:15 PM CDT CBC WITH AUTO DIFFERENTIAL STAT 03/05/2025 9:06 PM CDT URINALYSIS REFLEX IF INDICATED BY ABNORMAL RESULTS STAT 03/05/2025 9:06 PM CDT APTT (PTT) STAT 03/05/2025 9:06 PM CDT PROTIME (PT) (PROTHROMBIN TIME) STAT 03/05/2025 9:06 PM CDT LIPASE STAT 03/05/2025 9:06 PM CDT MAGNESIUM (MG) STAT 03/05/2025 9:06 PM CDT CMP (COMPREHENSIVE METABOLIC PANEL) STAT 03/05/2025 9:06 PM CDT COMPLETE BLOOD COUNT (CBC) WITH DIFF STAT 03/05/2025 9:[address] - ABDOMEN/PELVIS 03/05/2025 12:00 AM CDT XR CHEST 2 VIEWS STAT 01/09/2025 11:36 AM CDT CBC WITH AUTO DIFFERENTIAL STAT 01/09/2025 11:13 AM CDT TROPONIN I, HIGH SENSITIVITY (HSTRP) STAT 01/09/2025 11:13 AM CDT CMP (COMPREHENSIVE METABOLIC PANEL) STAT 01/09/2025 11:13 AM CDT COMPLETE BLOOD COUNT (CBC) WITH DIFF STAT 01/09/2025 11:13 AM CDT EKG 12 LEAD STAT 01/09/2025 11:01 AM CDT EKG SCAN 01/09/2025 12:00 AM CDT from Last 3 Months Results * CT ABDOMEN PELVIS W/ CONTRAST (03/05/2025 11:15 PM CDT) Anatomical Region Laterality Modality Abdomen N/A Computed Tomogra phy 03/05/2025 11:1 5 PM CDT Impressions 03/06/2025 6:11 AM CDT IMPRESSION: No acute finding. No evidence for herniation. Normal appendix. No bowel obstruction. Mild constipation. Narrative 03/06/2025 6:[address] ABDOMEN PELVIS W/ CONTRAST : 03/05/2025 11:15 PM DICTATING PHYSICIAN: RODRIGUEZ GARCIA, [facility]. HISTORY: As below. ADDITIONAL TECHNOLOGIST HISTORY: RLQ abdominal pain (Age >= 14y), pt c/o lump in upper abd with pain after lifting heavy bags of concrete 3 days ago. TECHNIQUE: Multiple helical axial images were obtained through the abdomen and pelvis with contrast. Multiplanar reformats were performed. Image acquisition performed utilizing automated exposure control (AEC) and iterative reconstruction software in order to lower patient dose. IV CONTRAST TYPE AND VOLUME: Administered contrast documentation is located within the patient's electronic health record. RADIATION DOSE: DLP [id number] COMPARISON: 09/23/2021. FINDINGS: Lung bases: Clear. ABDOMEN: Liver: No focal lesion or intrahepatic bile duct dilatation. Portal venous system is patent. Gallbladder: No evidence for wall thickening or inflammation. Spleen: Within normal limits. No evidence for splenomegaly or focal lesion. Pancreas: No focal lesion or pancreatic ductal dilatation. Adrenal glands: No focal nodule. Kidneys: No focal suspicious lesion or obstructive uropathy evident. Simple right cortical cyst no follow-up necessary. Abdominal aorta and IVC: Abdominal aorta is normal in caliber. IVC is grossly normal. Retroperitoneum: Normal Mesentery/Peritoneum: Normal. Stomach and small bowel: Within normal limits. No evidence for obstruction. PELVIS: Free fluid: No free fluid or fluid collection. Reproductive: Normal. Bladder: Normal contour and wall thickness. Lymphadenopathy: No pathologic lymphadenopathy. Colon: Mild constipation. Appendix: Normal caliber and wall thickness. Skeletal structures and soft tissues: Age-appropriate degenerative changes. No suspicious osseous lytic or blastic process. No soft tissue abnormality. Procedure Note Rodriguez Garcia MD - 03/06/2025 CT ABDOMEN PELVIS W/ CONTRAST : 03/05/2025 11:15 PM DICTATING PHYSICIAN: RODRIGUEZ GARCIA [facility]. HISTORY: As below. ADDITIONAL TECHNOLOGIST HISTORY: RLQ abdominal pain (Age >= 14y), pt c/olump in upper abd with pain after lifting heavy bags of concrete 3 daysago. TECHNIQUE: Multiple helical axial images were obtained through the abdomen and pelviswith contrast. Multiplanar reformats were performed. Image acquisitionperformed utilizing automated exposure control (AEC) and iterativereconstruction software in order to lower patient dose. IV CONTRAST TYPE AND VOLUME: Administered contrast documentation islocated within the patient's electronic health record. RADIATION DOSE: DLP [id number] COMPARISON: 09/23/2021. FINDINGS: Lung bases: Clear. ABDOMEN: Liver: No focal lesion or intrahepatic bile duct dilatation. Portal venoussystem is patent. Gallbladder: No evidence for wall thickening or inflammation. Spleen: Within normal limits. No evidence for splenomegaly or focallesion. Pancreas: No focal lesion or pancreatic ductal dilatation. Adrenal glands: No focal nodule. Kidneys: No focal suspicious lesion or obstructive uropathy evident.Simple right cortical cyst no follow-up necessary. Abdominal aorta and IVC: Abdominal aorta is normal in caliber. IVC isgrossly normal. Retroperitoneum: Normal Mesentery/Peritoneum: Normal. Stomach and small bowel: Within normal limits. No evidence forobstruction. PELVIS: Free fluid: No free fluid or fluid collection. Reproductive: Normal. Bladder: Normal contour and wall thickness. Lymphadenopathy: No pathologic lymphadenopathy. Colon: Mild constipation. Appendix: Normal caliber and wall thickness. Skeletal structures and soft tissues: Age-appropriate degenerativechanges. No suspicious osseous lytic or blastic process. No soft tissueabnormality. IMPRESSION: No acute finding. No evidence for herniation. Normal appendix. No bowel obstruction. Mild constipation. us Song Arbolead MD IM CT ORDERABLES Final R esult * (ABNORMAL) Urinalysis w/ Reflex (03/05/2025 9:06 PM CDT) SPECIFIC GRAVITY 1.020 1.003 - 1.030 03/05/2025 9:25 PM CDT [facility] URINE PH 6.5 5.0 - 9.0 03/05/2025 9:25 PM CDT [facility] WBC ESTERASE Negative Negative 03/05/2025 9:25 PM CDT [facility] NITRITE Negative Negative 03/05/2025 9:25 PM CDT [facility] PROTEIN, RANDOM URINE 15 mg/dL(A) Negative 03/05/2025 9:25 PM CDT [facility] URINE GLUCOSE, QUAL Negative Negative 03/05/2025 9:25 PM CDT [facility] URINE KETONES Negative Negative 03/05/2025 9:25 PM CDT [facility] UROBILINOGEN 1 mg/dL(A) Normal mg/dL 03/05/2025 9:25 PM CDT [facility] URINE BLOOD Negative Negative roscoe/ul 03/05/2025 9:25 PM CDT [facility] URINALYSIS COLOR Yellow 03/05/20 9:25 PM CDT [facility] URINALYSIS CLARITY Very Cloudy 03/05/2025 9:25 PM CDT [facility] Urine URINE SPECIMEN / Unknown Non-Phlebotomy Collection / Unknown 03/05/2025 9:06 PM CDT 03/05/2025 9:18 PM CDT us Song Arboleda MD URINE ORDERABLES Final Re sult [facility] [place] [address] * (ABNORMAL) CBC with Auto Differential (03/05/2025 9:06 PM CDT) Only the most recent of2 resultswithin the time period is included. WBC 7.47 4.00 - 12.00 10(3)/mcL 03/05/2025 9:22 PM CDT [facility] RBC 4.73 4.40 - 5.80 10(6)/mcL 03/05/2025 9:22 PM CDT [facility] HEMOGLOBIN (HGB) 14.3 13.0 - 16.5 g/dL 03/05/2025 9:22 PM CDT [facility] HEMATOCRIT (HCT) 43.2 38.0 - 50.0 % 03/05/2025 9:22 PM CDT [facility] MCV 91.3 82.0 - 96.0 fL 03/05/2025 9:22 PM CDT [facility] MCH 30.2 26.0 - 32.0 pg 03/05/2025 9:22 PM CDT [facility] MCHC 33.1 31.0 - 36.0 g/dL 03/05/2025 9:22 PM CDT [facility] PLATELET COUNT 188 140 - 440 10(3)/mcL 03/05/2025 9:22 PM CDT [facility] RDW 12.1 11.8 - 15.5 % 03/05/2025 9:22 PM CDT [facility] MPV 9.8 8.0 - 12.6 fL 03/05/2025 9:22 PM CDT [facility] NEUTROPHILS 68.3(H) 40.0 - 68.0 % 03/05/2025 9:22 PM CDT [facility] LYMPHOCYTES 23.2 19.0 - 49.0 % 03/05/2025 9:22 PM CDT [facility] MONOCYTES 6.4 3.0 - 13.0 % 03/05/2025 9:22 PM CDT [facility] EOSINOPHILS 1.3 0.0 - 8.0 % 03/05/2025 9:22 PM CDT [facility] BASOPHILS 0.5 0.0 - 1.0 % 03/05/2025 9:22 PM CDT [facility] IMMATURE GRANULOCYTE 0.3 0.0 - 0.4 % 03/05/2025 9:22 PM CDT [facility] ABSOLUTE NEUTROPHILS 5.10 1.40 - 5.30 10(3)/[facility] 03/05/2025 9:22 PM CDT [facility] ABSOLUTE LYMPHOCYTES 1.73 0.90 - 3.30 10(3)/[facility] 03/05/2025 9:22 PM CDT [facility] ABSOLUTE MONOCYTES 0.48 0.10 - 0.90 10(3)/[facility] 03/05/2025 9:22 PM CDT [facility] ABSOLUTE EOSINOPHIL 0.10 0.00 - 0.50 10(3)/[facility] 03/05/2025 9:22 PM CDT [facility] ABSOLUTE BASOPHILS 0.04 0.00 - 0.10 10(3)/[facility] 03/05/2025 9:22 PM CDT [facility] ABSOLUTE IMMATURE GRANULOCYTE 0.02 0.00 - 0.03 10 (3) mcL. 03/05/2025 9:22 PM CDT [facility] NRBC PER 100 WBC 0 03/05/20 9:22 PM CDT [facility] Blood Venipuncture / Unknown 03/05/2025 9:06 PM CDT 03/05/2025 9:18 PM CDT us Song Arboleda MD HEMATOLOGY ORDERABLES Fin al Result Performing Organization Address City/[facility] Co de Phone Number [facility] [place] [address] * PTT (03/05/2025 9:06 PM CDT) PTT 29 24 - 36 sec 03/05/2025 9:59 PM CDT [facility] Blood Venipuncture / Unknown 03/05/2025 9:06 PM CDT 03/05/2025 9:18 PM CDT Narrative [facility] - 03/05/2025 9:59 PM CDT Therapeutic range for unfractionated heparin at 0.3-0.7 U/mL is an aPTT value in the range of 71-100 seconds. Critical value for the PTT test is >= 122 seconds. Song Arboleda MD HEMATOLOGY ORDERABLES Fin al Result Performing Organization Address [facility] de Phone Number [facility] [place] [address] * PT / INR (03/05/2025 9:06 PM CDT) Pathologist [facility] PROTIME-PATIENT 13.0 11.6 - 14.8 sec 03/05/2025 9:59 PM CDT [facility] INR 1.0 0.9 - 1.2 03/05/2025 9:59 PM CDT [facility] Comment: Therapeutic Ranges INR = 2.0-3.0: Venous thromb, atrial fib, pul embolism, tissue heart valve, ami. INR = 2.5-3.5: Mechanical heart valve Critical value for INR is >/= 4.5 Blood Venipuncture / Unknown 03/05/2025 9:06 PM CDT 03/05/2025 9:18 PM CDT Song Arboleda MD HEMATOLOGY ORDERABLES Fin al Result Performing Organization Address [facility] Co de Phone Number [facility] [place] [address] * Magnesium (03/05/2025 9:06 PM CDT) Pathologist [facility] MAGNESIUM 1.8 1.6 - 2.6 mg/dL 03/05/2025 9:43 PM CDT [facility] Blood Venipuncture / Unknown 03/05/2025 9:06 PM CDT 03/05/2025 9:18 PM CDT Song Arboleda MD CHEMISTRY ORDERABLES Vivian l Result [facility] [place] [address] * Lipase (03/05/2025 9:06 PM CDT) [facility] LIPASE 26 8 - 78 U/L 03/05/2025 9:43 PM CDT [facility] Blood Venipuncture / Unknown 03/05/2025 9:06 PM CDT 03/05/2025 9:18 PM CDT Song Arboleda MD CHEMISTRY ORDERABLES Vivian l Result [facility] [place] [address] * (ABNORMAL) CMP (03/05/2025 9:06 PM CDT) Only the most recent of2 resultswithin the time period is included. Pathologist [facility] SODIUM 143 136 - 145 mmol/L 03/05/2025 9:43 PM CDT [facility] POTASSIUM 4.0 3.5 - 5.1 mmol/L 03/05/2025 9:43 PM CDT [facility] CHLORIDE 106 98 - 107 mmol/L 03/05/2025 9:43 PM CDT [facility] CO2, VENOUS 30 22 - 30 mmol/L 03/05/2025 9:43 PM CDT [facility] ANION GAP 11.0 <18.0 mmol/L 03/05/2025 9:43 PM CDT [facility] GLUCOSE 103(H) 70 - 99 mg/dL 03/05/2025 9:43 PM CDT [facility] BUN 21 9 - 21 mg/dL 03/05/2025 9:43 PM CDT [facility] CREATININE, BLOOD 0.79 0.70 - 1.30 mg/dL 03/05/2025 9:43 PM CDT [facility] BUN/CREATININE RATIO 27(H) 12 - 20 ratio 03/05/2025 9:43 PM CDT [facility] TOTAL PROTEIN 6.9 6.0 - 8.0 g/dL 03/05/2025 9:43 PM CDT [facility] ALBUMIN 4.5 3.5 - 5.0 g/dL 03/05/2025 9:43 PM CDT [facility] A/G RATIO 1.9 1.0 - 2.2 03/05/2025 9:43 PM CDT [facility] CALCIUM 9.4 8.7 - 10.5 mg/dL 03/05/2025 9:43 PM CDT [facility] T BILI 0.3 0.2 - 1.2 mg/dL 03/05/2025 9:43 PM CDT [facility] SGOT (AST) 27 <43 U/L 03/05/2025 9:43 PM CDT [facility] SGPT (ALT) 36 <56 U/L 03/05/2025 9:43 PM CDT [facility] ALKALINE PHOSPHATASE 79 40 - 150 U/L 03/05/2025 9:43 PM T [facility] GFR, ESTIMATED >60 >=60 03/05/2025 9:43 PM CDT [facility] Comment: Creatinine Clearance is the preferred criteria for selecting drug dose adjustments in renally impaired patients. The GFR is provided as additional pertinent clinical information. GFR is reported in mL/min/1.73 sq m. Calculation based on the 2020 Chronic Kidney Disease Epidemiology Collaboration (CKD-EPI) equation refit without adjustment for race. GFR, EST. >60 >=60 025 9:43 PM CDT [facility] Comment: Creatinine Clearance is the preferred criteria for selecting drug dose adjustments in renally impaired patients. The GFR is provided as additional pertinent clinical information. GFR is reported in mL/min/1.73 sq m. Calculation based on the 2009 Chronic Kidney Disease Epidemiology Collaboration (CKD-EPI). GFR, EST. NONAFRICAN >60 >=60 03/05/2025 9:43 PM CDT [facility] Comment: Creatinine Clearance is the preferred criteria for selecting drug dose adjustments in renally impaired patients. The GFR is provided as additional pertinent clinical information. GFR is reported in mL/min/1.73 sq m. Calculation based on the 2009 Chronic Kidney Disease Epidemiology Collaboration (CKD-EPI). Blood Venipuncture / Unknown 03/05/2025 9:06 PM CDT 03/05/2025 9:18 PM CDT Song Arboleda MD CHEMISTRY ORDERABLES Vivian l Result Performing Organization Address City/[facility]/ZIP Co de Phone Number [facility] [place] [address] * CT - ABDOMEN/PELVIS (03/05/2025 12:00 AM CDT) 03/05/2025 us Provider Scan IMG CT ORDERABLES Final Result SCAN * XR CHEST 2 VIEWS (01/09/2025 11:36 AM CDT) Anatomical Region Laterality Modality Chest N/A Digital Radiogra phy 01/09/2025 11:5 9 AM CDT Impressions 01/09/2025 12:02 PM CDT IMPRESSION: No acute cardiopulmonary abnormality. Narrative 01/09/2025 12:02 PM CDT EXAM DESCRIPTION: XR CHEST 2 VIEWS REASON FOR STUDY: intermittent sternal chest pain onset yesterday. no injury. TECHNIQUE: 2 radiographic view(s) of the chest. COMPARISON: 01/17/2022 FINDINGS: LUNGS: No focal opacity, pleural effusion, or pneumothorax. HEART/MEDIASTINUM: Cardiac silhouette normal in size. Mediastinal and hilar contours appear normal. LINES/TUBES: None. BONES: No acute osseous abnormality. THIS IS AN ELECTRONICALLY VERIFIED FINAL REPORT 01/09/2025 11:59 AM - Electronically signed by Dashawn Huerta M.D. KR: BOSSMAN Report ID: [id number] Reading Location: [place] [address] Procedure Note Dashawn Huerta MD - 01/09/2025 EXAM DESCRIPTION: XR CHEST 2 VIEWS REASON FOR STUDY: intermittent sternal chest pain onset yesterday. no injury. TECHNIQUE: 2 radiographic view(s) of the chest. COMPARISON: 01/17/2022 FINDINGS: LUNGS: No focal opacity, pleural effusion, or pneumothorax. HEART/MEDIASTINUM: Cardiac silhouette normal in size. Mediastinal and hilar contours appear normal. LINES/TUBES: None. BONES: No acute osseous abnormality. THIS IS AN ELECTRONICALLY VERIFIED FINAL REPORT 01/09/2025 11:59 AM - Electronically signed by Dashawn Huerta M.D. KR: BOSSMAN Report ID: [id number] Reading Location: [id number] IMPRESSION: No acute cardiopulmonary abnormality. Mehran Ascencio [facility] ORDER PALLAVI Final Result * TROPONIN I, HIGH SENSITIVITY (HSTRP) (01/09/2025 11:13 AM CDT) TROPONIN I, HIGH SENSITIVITY- [facility] <3 <=35 ng/L 01/09/2025 11:50 AM CDT [facility] Comment: High-sensitivity troponin I results are reported in ng/L making the result appear to be 1,000 times higher than the contemporary troponin I value which is reported in ng/ml. Results from [facility]. Blood Venipuncture / Unknown 01/09/2025 11:13 AM CDT 01/09/2025 11:25 AM CDT Dario Parrish MD CHEMISTRY ORDERABLES Final Result Performing Organization Address [facility]/ZIP Co de Phone Number [facility] [place] [address] * EKG 12 LEAD (01/09/2025 11:01 AM CDT) Ventricular Rate 124 BPM EXTERNAL EKG Atrial Rate 124 BPM EXTERNAL EKG P-R Interval 118 ms EXTERNAL EKG QRS Duration 82 ms EXTERNAL EKG Q-T Duration 302 ms EXTERNAL EKG QTC CALCULATION 433 ms EXTERNAL EKG P Priddy 66 degrees EXTERNAL EKG R Priddy 54 degrees EXTERNAL EKG T Priddy 28 degrees EXTERNAL EKG 01/09/2025 11:0 1 AM CDT Impressions EXTERNAL EKG - 01/12/2025 10:34 PM CDT Sinus tachycardia Otherwise normal ECG When compared with ECG of 17-FEB-2024 11:16, Vent. rate has increased BY 57 BPM Confirmed by Conrad Chavis ([id number]) on 01/12/2025 10:34:41 PM Narrative Procedure Note Conrad Chavis MD PhD - 01/12/2025 IMPRESSION: Sinus tachycardia Otherwise normal ECG When compared with ECG of 17-FEB-2024 11:16, Vent. rate has increased BY 57 BPM Confirmed by Conrad Chavis ([id number]) on 01/12/2025 10:34:41 PM Dario Parrish MD IMG ECG ORDERABLES Final R esult Performing Organization Address City/[facility]/ZIP Co de Phone Number EXTERNAL EKG * EKG SCAN (01/09/2025 12:00 AM CDT) 01/09/2025 us Provider Scan IMG ECG ORDERABLES Final Result RESULTING AGENCY from Last 3 Months Insurance [place]ICA[place] Member Subscriber Plan / Payer (Ef fective 2019-Present) Name:Franck Hinojosa Relation to Subscriber:Self Name:Franck Hinojosa Payer ID:[id number] Group ID:NONE Type:Not on file Address: [address] [id number] MEDICARE Care Teams Private Tutors And Teachers Relationship Specialty Start Date End Date Narendra Desouza MD 2 [facility] , [address] [address] PCP - General Family Medicine 01/09/25
--- OUTSIDE RECORDS SUMMARY | 2025-03-31 18:35 | XMS_ITS | Clinical Summary ---
Author Organization [facility] Address [address] [place] [address] Care Team Providers Care Dot Compliance Coordinator Name Role Phone Unavailable Primary Care Provider Unavailabl e Source Comments [facility],non-owned Affiliates and Associated Physician Practices is amultiple site organization consisting of ambulatory clinics and hospital sitesin [place], [place], [place] and [place]. This disclosure is being madepursuant to the Care Everywhere program and may not contain all information available regarding this patient. Last updated 18.[facility] Allergies No known active allergies Medications * Be aware that medications may not be up to date on this document. Alwaysverify current medications with the patient. 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 Gender Identity Not on file Sexual Orientation Not on file Plan of Treatment Health Maintenance Due Date Last Done Comments MEDICARE AWV 12 MONTHS 2001 HIV SCREENING 2016 HPV VACCINE (1 - Male 3-dose series) 2016 MENINGOCOCCAL (Group B) VACCINE SHARED DECISION-MAKING (1 of 2 - Standard) 2017 HEPATITIS C SCREENING 05/08/2019 DTAP/TDAP/TD VACCINES (1 - Tdap) 2020 HEPATITIS B VACCINE (1 of 3 - 19+ 3-dose series) 2020 PNEUMOCOCCAL VACCINE (1 of 2 - PCV) 2020 DEPRESSION SCREENING 06/29/2024 COVID-19 VACCINE (1 - season) 2025 INFLUENZA VACCINE (#1) 2025 2, 09/02/2011, 06/07/2010, Additional history exists ZOSTER VACCINE (1 of 2) 2051 HIB VACCINE Aged Out No longer eligi ble based on patient's age to complete this topic MENINGOCOCCAL GROUPS A/C/Y/W VACCINE Aged Out No longer eligible based on patient's age to complete this topic Insurance MEDICAID - OUT OF STATE MEDICARE MEDICAID - OUT OF STATE
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
--- NOTE | 2025-03-31 18:49 | ED.WOUNDLAC ---
HPI - Wound/Laceration General Chief Complaint: Wound/Laceration Stated Complaint: Puncture Wound Left Arm Time Seen by Provider: 03/31/25 18:35 Source: patient Mode of arrival: ambulatory Limitations: no limitations History of Present Illness HPI narrative: Franck is a 24-year-old male patient presenting to the clinic today with complaints of a puncture wound to his left proximal forearm. States that a wire poked him in the forearm a few hours ago. States the wire was outside and ?came out of no where?. States he felt like it stabbed the bone. He is unaware of his tetanus is up-to-date. He reports his pain 04/07 currently. Has not taken any medications or applied ice. Patient cleansed with an alcohol wipe. Bleeding is controlled. Related Data Home Medications ?Medication ?Instructions ?Recorded ?Confirmed ?Last Taken ?Type dextroamphetamine-amphetamine 5 mg 5 mg PO QHS 03/23/24 03/23/24 Unknown History tablet dextroamphetamine-amphetamine ER 15 mg PO QAM 03/23/24 03/23/24 Unknown History 15 mg 24hr capsule,extend release Allergies Allergy/AdvReac Type Severity Reaction Status Date / Time buspirone (From BuSpar) Allergy Rash Verified 03/31/25 18:54 Review of Systems Review of Systems: Pertinent positives per HPI. Patient denies any fever, chills, rash, headache, visual changes, dizziness, cough, runny nose, sore throat, shortness of breath, chest pain, palpitations, nausea, vomiting, diarrhea, constipation, abdominal pain, or any urinary issues. FOR[facility]LY [facility], [facility] Past Medical History Medical History OCD (obsessive compulsive disorder) Anxiety and depression Pneumonia Bronchitis Schizo affective schizophrenia Bipolar 1 disorder Surgical History Surgical History H/O eye surgery History of repair of pyloric stenosis Social History Social History Smoking status: Never smoker Alcohol intake: unknown Substance use: current Substance use type: marijuana Gender identity (if verbalized by the patient): Male Comments At the time of my signature, I reviewed and agree with the nursing past medical, surgical, social, and family history. There is no relevant family history pertinent to the patient complaint. Exam Narrative: General: Well-developed, well nourished, in no apparent distress Head: Normocephalic, atraumatic. Cardio: Regular rate and rhythm, s1 and s2 normal, no murmur appreciated. Resp: Clear to auscultation bilaterally, no rhonchi, rales, wheezing or rubs. Musculoskeletal: No deformity, puncture wound to the left volar ulnar aspect of proximal forearm with tenderness to palpation with localized swelling, no redness or erythema, grossly normal range of motion, bleeding controlled, muscle strength strong and equal, peripheral pulse strong, no edema, no cyanosis, normal gait and station Course Course Emergency Course: Portions of this record may have been created with voice recognition software. Level of Care: Express Care Visit Vital Signs Vital signs: Vital Signs Temperature 37.2 C 03/31/25 18:55 Pulse Rate 98 03/31/25 18:55 Respiratory Rate 18 03/31/25 18:55 Blood Pressure 131/77 03/31/25 18:55 Pulse Oximetry 100 03/31/25 18:55 Oxygen Delivery Room Air 03/31/25 18:55 Temperature 37.2 C 03/31/25 18:55 Pulse Rate 98 03/31/25 18:55 Respiratory Rate 18 03/31/25 18:55 Blood Pressure 131/77 03/31/25 18:55 Pulse Oximetry 100 03/31/25 18:55 Oxygen Delivery Room Air 03/31/25 18:55 Vital signs reviewed MDM - Wound/Laceration MDM Narrative Medical decision making narrative: At the time of visit patient is resting comfortably on the exam table. Patient appears to be nontoxic. Complaints of a puncture wound to his left proximal forearm. States that a wire poked him in the forearm a few hours ago. States the wire was outside and ?came out of no where?. States he felt like it stabbed the bone. He is unaware of his tetanus is up-to-date. He reports his pain 10/10 currently. Has not taken any medications or applied ice. Cleansed with an alcohol wipe. Bleeding is controlled. On exam puncture wound to the left volar proximal forearm ulnar aspect with tenderness to palpation with localized swelling, no redness or erythema, grossly normal range of motion, bleeding controlled, Tdap, x-ray of the left forearm, and ibuprofen 800 mg ordered. Wound cleansing was performed in the clinic. Medications: Tdap 0.5 mL IM ordered and 800 mg of ibuprofen given in the clinic Diagnostics: X-ray of the left forearm was performed and was negative for any sign of fracture, malalignment, or foreign body Plan: I suspect patient has puncture wound to the left forearm with localized swelling of the subcutaneous tissue. Tdap updated in the clinic today, will send in prescription for Keflex to cover for secondary infection. Supportive measures were discussed with the patient and they voiced understanding discharge instructions and agrees to treatment plan. Return precautions reviewed Differential Diagnosis Differential diagnosis: Likely laceration, abrasion, avulsion of skin and other (Puncture wound) Discharge Plan Discharge Clinical Impression: Puncture wound of forearm, left Qualifiers: Encounter type: initial encounter Qualified Code(s): S51.832A - Puncture wound without foreign body of left forearm, initial encounter Patient Disposition: Home Condition: Stable Instructions: Antibiotic Form, Puncture Wound (ED) Additional Instructions: X-rays negative for any sign of fracture, malalignment, or foreign body of the left forearm Ibuprofen 800 mg given in the clinic today Tdap given in the clinic today Rest, ice, Marquise wrap, and elevate Take cephalexin as prescribed Tylenol/motrin for pain as discussed. Leave bandage on for 24 hours then may remove and apply band aide covering as needed. Keep wound clean and dry Watch for signs and symptoms of infection- redness, streaking, swelling, purulent discharge, or increase in pain. Follow up with your PCP in 3-5 days for wound check Patient Language: Bulgarian Prescriptions: New cephalexin 500 mg capsule 500 mg PO Q8H 7 Days Qty: 21 0RF No Action dextroamphetamine-amphetamine 5 mg tablet 5 mg PO QHS dextroamphetamine-amphetamine 15 mg capsule,extended release 24hr 15 mg PO QAM Follow-up/Referrals: Deo,Narendra Heard MD [Primary Care Provider, Unknown] Time of Disposition: 19:24 Quality NIHSS Nursing Documentation ED NIHSS nursing documentation: reviewed/agree
[2025-03-31 18:55] VITALS: BP 131/77; PULSE 98; RESP 18; TEMP 37.2; O2SAT 100
[2025-03-31] MEDS: TETANUS,DIPHTHERIA,AC PERTUSSIS ADULT (0.5 ML) BOOSTRIX IM (19:07)
[2025-03-31] MEDS: IBUPROFEN 400 MG TABLET 800 MG PO (19:21)
== END 2025-03-31 19:42 | disposition home or self-care (01) ==
PROVIDERS: Emergency Provider Nurse Practitioner Family; PCP Family Medicine
DX: S51.832A Puncture wound without foreign body of left forearm, initial encounter (principal); W22.8XXA Striking against or struck by other objects, initial encounter; Z23 Encounter for immunization; F12.90 Cannabis use, unspecified, uncomplicated
CPT/HCPCS: 73090; 90471; 90715; 99213; A9270; G0463